=== PATIENT | female | born 2005 | race Caucasian/White ===

== ENCOUNTER 2024-07-10 00:22 | Emergency (ER) | payer MEDICARE ==
[~2024-07-10] VITALS: Ht 167.6 cm; Wt 76.0 kg
[2024-07-10 00:25] VITALS: O2SAT 100
[2024-07-10] MEDS ORDERED: ACETAMINOPHEN 325MG TABLET PO ONE (00:45)
[2024-07-10] MEDS: SODIUM CHLORIDE 0.9% 1,000 ML IV ONE (01:31)
[2024-07-10 01:49] LABS: BASOPHILS % 0.2 % (0.0-2.0); EOSINOPHILS % 0.7 % (0.0-5.0); HEMOGLOBIN. 12.9 g/dL (12.0-16.0); LYMPHOCYTES % 15.5 % (20.0-50.0); MEAN CORPUSCULAR HEMOGLOBIN 29.3 pg (28.0-32.0); MEAN CORPUSCULAR VOLUME 88.9 fL (81.0-99.0); MEAN PLATELET VOLUME 7.3 fl (7.4-10.4); MONOCYTES % 5.8 % (2.0-8.0); NEUTROPHILS % 77.8 % (40.0-76.0); PLATELET 424 x1000/uL (130-400); RED BLOOD CELL COUNT 4.39 mill/uL (4.2-5.4); RED CELL DISTRIBUTION WIDTH 16.4 % (11.6-14.6); WHITE BLOOD COUNT 14.9 x1000/uL (4.5-11.0)
[2024-07-10 01:58] LABS: CHLORIDE 107 mEq/L (98-107); POTASSIUM 3.5 mEq/L (3.5-5.1); SODIUM 143 mEq/L (136-145)
[2024-07-10 01:59] LABS: CALCIUM 9.1 mg/dL (8.7-10.4); CARBON DIOXIDE 24 mEq/L (21-32)
[2024-07-10] MEDS ORDERED: ONDANSETRON HCL 4MG/2ML INJ IV ONE (02:00)
[2024-07-10 02:04] LABS: CREATININE 0.8 mg/dL (0.6-1.0); GLUCOSE 101 mg/dL (70-105); UREA NITROGEN BLOOD 9 mg/dL (9-23)
[2024-07-10 02:05] LABS: ETHANOL BLOOD 48 mg/dL (<10)
[2024-07-10 02:06] LABS: ACETAMINOPHEN < 2 ug/mL (10-30); ALANINE AMINOTRANSFERASE 44 IU/L (10-49); ALBUMIN 4.4 g/dL (3.2-4.8); ASPARTATE AMINOTRANSFERASE 64 IU/L (<34); BILIRUBIN DIRECT 0.1 mg/dL (<=3.0); BILIRUBIN TOTAL 0.4 mg/dL (0.1-1.0); PROTEIN TOTAL 7.8 g/dL (6.0-8.3)
[2024-07-10 02:11] LABS: HCG SCREEN NEGATIVE
[2024-07-10 03:10] LABS: TROPONIN I HIGH SENSITIVITY < 4 ng/L (3.0-34)
[2024-07-10 03:37] VITALS: BP 106/61; PULSE 94; RESP 14; TEMP 36.61404; O2SAT 100
== END 2024-07-10 03:39 | disposition home or self-care (01) ==
LOC: ER 00:22
DX: F19.90 Other psychoactive substance use, unspecified, uncomplicated (principal)
CPT/HCPCS: 80076; 80048; 80307; 80329; 80320; 84703; 85025; 84484; 36415; 96360; 99284; J2405; J7030; G0480